=== PATIENT | female | born 1970 | race Caucasian/White ===

== ENCOUNTER 2017-06-16 11:41 | Emergency (ER) | payer OTHER ==
[~2017-06-16] VITALS: Ht 157.5 cm; Wt 59.0 kg
[~2017-06-16 11:41] MED LIST: APAP650 PO; IBUPROFEN 800800 M1 PO; LEVAQUIN 500 M500 M1 PO; NORCO 5-325 TA1 EACH PO
[2017-06-16] MEDS ORDERED: SENNA8.6 MG PO (13:21)
[2017-06-16] MEDS ORDERED: CITRATE OF MAG296 ML PO (13:21)
== END 2017-06-16 13:36 | disposition home or self-care (01) ==
LOC: ER 11:41
DX: K59.00 Constipation, unspecified (principal); R10.9 Unspecified abdominal pain